=== PATIENT | male | born 1945 | race Asian ===

== ENCOUNTER → 2019-05-16 | Outpatient (CLI) | payer OTHER ==
[~2019-05-16] MED LIST: ASPI-482 PO
--- NOTE | 2019-05-16 16:05 | KCIC ---
Examination: ABDOMEN COMPLETE History: Weight loss Comparison/Correlation: None Findings: Upper abdominal ultrasound exam was performed. Hepatic echotexture is normal. Portal venous flow is normal. Liver length is 12.8 cm. Common bile duct diameter of 0.8 cm noted. Gallbladder is contracted. No cholelithiasis or findings definitive for cholecystitis. No pericholecystic fluid or ascites. Proximal pancreas is normal. Distal pancreas is obscured by bowel gas. Spleen is normal measuring up to 9.5 cm longitudinal. Right kidney measures 10.2 cm x 4.6 cm x 4.47. Left kidney measures 10.1 cm x 4.6 cm x 4.8 cm. No hydronephrosis. Renal contours and echotexture are normal. Urinary bladder is unremarkable. Bilateral ureteral jets noted. Fluid-filled bowel is present in the lower abdomen. Aorta is not visualized due to overlying bowel gas. Inferior vena cava is not well visualized due to overlying bowel gas. Impression: No suspicious process. Evaluation of the gallbladder is limited however as it is contracted on this exam. Electronically signed by: Adin Donaldson MD (05/16/2019 4:02 PM) [id number]
--- NOTE | 2019-05-16 16:40 | KCIC ---
CHEST PA LATERAL Clinical indications: Abnormal weight loss. COMPARISON: September 29, 2016. Findings: No acute lung infiltrate or pleural effusion or pulmonary edema or lung mass or pneumothorax is seen. A sternotomy is again evident. The heart size is at the upper limits normal but stable. The pulmonary vasculature, mediastinum and both denise are stable. The osseous structures appear intact. Impression: No acute radiographic abnormality is seen. Electronically signed by: Parish Hester MD (05/16/2019 4:37 PM) [place] [id number]
== END | disposition home or self-care (01) ==
LOC: KCIC US 07:35
PROVIDERS: ATTEND Internal Medicine
DX: R63.4 Abnormal weight loss (principal); Z79.899 Other long term (current) drug therapy
CPT/HCPCS: 71046; 76700

== ENCOUNTER → 2021-11-28 | Day surgery (SDC) | payer OTHER ==
[~2021-11-28] VITALS: Ht 177.8 cm; Wt 60.0 kg
[~2021-11-28] MED LIST changes: +CARV3.12 PO; +EMPA10TA PO; +IV RINGERS,LACTATED 1000ML 1,000 ML IV SCH; +LIPITOR80 MG PO; +LOSA25TA54 PO; +METF-658 PO; +PANT40TA77 PO; +PROPOFOL 10 MG/ML (20ML) VIAL. IV ONE
[2021-11-28 07:41] VITALS: BP 185/82
[2021-11-28 09:35] VITALS: BP 156/74
--- NOTE | 2021-11-28 09:53 | CONS ---
DATE OF CONSULTATION: 11/28/2021 REASON FOR CONSULTATION: Colorectal screening. HISTORY OF PRESENT ILLNESS: A 76-year-old male with past medical history significant for hyperlipidemia, hypertension, diabetes, status post KS was seen for screening colon exam. Bowel habits are regular diarrhea, constipation. There has been no melena and/or hematochezia. Family history is negative for colon cancer. Weight and appetite are stable. He is otherwise without additional complaints. PAST MEDICAL HISTORY: [place], status post stents, hyperlipidemia, hypertension, GERD, diabetes. ALLERGIES: None. MEDICATIONS: Aspirin, atorvastatin, carvedilol, Jardiance, losartan, metformin, and pantoprazole. FAMILY HISTORY AND SOCIAL HISTORY: Social drinker, nonsmoker. PAST SURGICAL HISTORY: Status post defibrillator placement and CABG. REVIEW OF SYSTEMS: Per records. PHYSICAL EXAMINATION: GENERAL: Reveals a well-nourished, well-developed male who is alert, cooperative, in no acute distress. VITAL SIGNS: Temperature is 97.4, pulse 80, respiratory rate 20. LUNGS: Clear. CARDIOVASCULAR: Reveals an S1, S2, without S3, S4 or appreciable murmur. ABDOMEN: Soft abdomen, normal bowel sounds, without appreciable hepatosplenomegaly. EXTREMITIES: Reveals no cyanosis, clubbing or edema, previous bypass surgery and defibrillator noted. IMPRESSION: Colorectal screening is warranted at this time. Risks and benefits of procedure have been previously discussed with the patient including risk of hemorrhage and perforation and is willing to proceed. LUPE FRANCO: Marilyn TID: [id number]
--- NOTE | 2021-12-01 14:07 | PATHOLOGY ---
[facility] Accession Number: [id number] . 01 Material submitted: . colon - DESCENDING COLON POLYP. Modifiers: descending . 01 Clinical history: . SCREENING . 02 Diagnosis: Colon biopsy, descending colon polyp: - Tubular adenoma. ([facility]:kevin; 12/01/2021) R 12/01/2021 1236 Local . 02 Comment: There is no high-grade dysplasia or evidence of malignancy. ([facility]:kevin; 12/01/2021) . 02 Electronically signed: . Thanh Carrillo MD, Pathologist NPI- [id number] . 01 Gross description: . The specimen is received in formalin, labeled "Keshava Pasnoori, descending colon polyp". Received is a segment of pale schwab tissue measuring 0.5 cm in maximum dimensions. The specimen is submitted entirely in cassette A1. ([facility]; 11/28/2021) QA/QA 11/28/2021 1557 Local . 02 Pathologist provided ICD-10: D12.4 . 02 CPT . 846283 Specimen Comment: A courtesy copy of this report has been sent to [phone], [phone] Specimen Comment: [id number] Specimen Comment: Report sent to / DR QUINONES Specimen Comment: A duplicate report has been generated due to demographic updates. Performed at: [facility] [address] [facility] [address] [facility] [address], [place] [id number] MD Nick Guerrero MD Phone: [phone] Performed at: 02 [facility] [address] [place], [place] [id number] MD Thanh Carrillo MD Phone: [phone]
== END | disposition home or self-care (01) ==
LOC: ENDOS 07:22
PROVIDERS: ATTEND Internal Medicine Gastroenterology
DX: Z12.11 Encounter for screening for malignant neoplasm of colon (principal); K64.0 First degree hemorrhoids; D12.4 Benign neoplasm of descending colon; K63.89 Other specified diseases of intestine; I25.2 Old myocardial infarction; I10 Essential (primary) hypertension; K21.9 Gastro-esophageal reflux disease without esophagitis; E11.9 Type 2 diabetes mellitus without complications; E78.00 Pure hypercholesterolemia, unspecified; Z79.82 Long term (current) use of aspirin; Z79.84 Long term (current) use of oral hypoglycemic drugs; Z79.899 Other long term (current) drug therapy; Z98.890 Other specified postprocedural states
CPT/HCPCS: 45385; J2704; 88305